=== PATIENT | female | born 1995 | race Caucasian/White ===

== ENCOUNTER 2022-07-24 16:24 | Outpatient (CLI) | payer OTHER, SELFPAY ==
[2022-07-24 18:14] LABS: hCG Titer Quant., Serum 1119 mIU/mL (1-3)
== END 2022-07-24 23:59 | disposition home or self-care (01) ==
LOC: LAB 16:30
PROVIDERS: PCP Family Medicine; Visit Provider Advanced Practice Midwife
DX: O20.0 Threatened abortion (principal)
CPT/HCPCS: 36415; 84702

== ENCOUNTER 2022-07-26 10:55 | Outpatient (CLI) | payer OTHER, SELFPAY ==
[2022-07-26 12:01] LABS: hCG Titer Quant., Serum 1930 mIU/mL (1-3)
== END 2022-07-26 23:59 | disposition home or self-care (01) ==
LOC: LAB 10:55
PROVIDERS: PCP Family Medicine; Visit Provider Advanced Practice Midwife
DX: O20.0 Threatened abortion (principal)
CPT/HCPCS: 36415; 84702

== ENCOUNTER → 2022-07-28 | Outpatient (CLI) | payer OTHER, SELFPAY ==
[2022-07-28 10:44] LABS: hCG Titer Quant., Serum 2027 mIU/mL (1-3)
== END | disposition home or self-care (01) ==
LOC: LAB 09:49
PROVIDERS: PCP Family Medicine; Referring Provider Obstetrics & Gynecology; Visit Provider Obstetrics & Gynecology
DX: O00.102 Left tubal pregnancy without intrauterine pregnancy (principal); O00.90 Unspecified ectopic pregnancy without intrauterine pregnancy
CPT/HCPCS: 36415; 84702

== ENCOUNTER 2022-08-05 18:24 | Day surgery (SDC) | payer OTHER, SELFPAY ==
[2022-08-05] VITALS (9 sets, daily range): BP systolic 106–123; BP diastolic 62–78; PULSE 72–96; RESP 14–18; TEMP 36.8–37.2; O2SAT 99–100; BMI 17.3
--- NOTE | 2022-08-05 18:48 | EDS_ITS ---
HPI <NICHOL Maddox - Last Filed: 08/05/22 21:55> HPI - Female History of Present Illness Chief Complaint: Narrative Narrative: Patient presents today for evaluation for known ectopic . Patient states on July 24 she began to have lower left-sided abdominal pain. She was evaluated in the hospital and it was determined that she had an ectopic . Last Thursday she was given a single dose of methotrexate. She states her hCG levels were repeated on Thursday and although they were still high, they were not as high as they were during her initial presentation. She states she started having a moderate amount of vaginal bleeding on Thursday that has since resolved. PFSH <NICHOL Maddox - Last Filed: 08/05/22 21:55> PFS Medical History ADHD Anxiety Depression IBS (irritable bowel syndrome) Insomnia Laryngospasms Home Medications buspirone 15 mg tablet 15 mg PO BID 08/05/22 [History Last Taken Unknown] lisdexamfetamine 50 mg capsule 50 mg PO DAILY 08/05/22 [History Last Taken Unknown] pantoprazole 40 mg tablet,delayed release 40 mg PO DAILY 08/05/22 [History Last Taken Unknown] sertraline 100 mg tablet 100 mg PO DAILY 08/05/22 [History Last Taken Unknown] trazodone 100 mg tablet 100 mg PO QHS 08/05/22 [History Last Taken Unknown] Allergy/AdvReac Type Severity Reaction Status Date / Time cefuroxime Allergy Hives Verified 08/05/22 18:54 Surgical History History of tonsillectomy Social History Smoking Status: Never smoker ROS <NICHOL Maddox - Last Filed: 08/05/22 21:55> ROS ED Constitutional Constitutional ED: Denies chills, fever(s) or sweats Eyes Eyes: Denies blurry vision or change in vision ENT ENT ED: Denies rhinorrhea or sore throat Cardiovascular Cardiovascular: Denies chest pain, palpitations or racing heartbeat Respiratory/Chest Respiratory/Chest: Denies cough, dyspnea or dyspnea on exertion Gastrointestinal Gastrointestinal: Denies abdominal pain, diarrhea, nausea or vomiting Genitourinary Genitourinary ED: Denies dysuria, hematuria or urinary frequency Musculoskeletal Musculoskeletal: Denies myalgias or neck pain Integumentary Denies abscess, Abrasions or rash Neurologic Neurologic: Denies headache(s), paresthesias or weakness Psychiatric Psychiatric: Denies anxiety or depression EXAM <NICHOL Maddox - Last Filed: 08/05/22 21:55> Physical Exam Const Vital Signs: 08/05/22 18:25 08/05/22 20:34 08/05/22 21:18 Temperature 98.9 F 99.0 F Temperature Source Temporal Oral Pulse Rate 91 96 Respiratory Rate 14 16 16 Blood Pressure 106/73 114/71 Blood Pressure Mean 84 85 Blood Pressure Source Monitor Blood Pressure Location Left Arm Pulse Ox 99 100 Oxygen Delivery Method Room Air Room Air Positive well nourished and well developed General Appearance ED: well developed and NAD HEENT Reports moist mucous membranes Negative for trauma or tenderness Eyes PERRL and EOMs intact bilaterally Neck no lymphadenopathy and supple Chest Wall inspection of chest normal Resp normal respiratory effort and clear to auscultation bilaterally Cardio regular rate, regular rhythm and no murmurs GI normal to inspection, nondistended, normoactive bowel sounds, soft to palpation and no masses Extremity normal to inspection and full ROM Neuro oriented x3, CN's II-XII intact bilaterally and no sensory deficits noted Sensorium / Orientation: alert Motor Exam: strength 5/5 throughout Psych mental status grossly normal Skin no rashes or lesions noted and no wounds <Dr. Chris Conde DO - Last Filed: 08/05/22 21:15> Physical Exam Const Vital Signs: 08/05/22 18:25 08/05/22 20:34 08/05/22 21:18 Temperature 98.9 F 99.0 F Temperature Source Temporal Oral Pulse Rate 91 96 Respiratory Rate 14 16 16 Blood Pressure 106/73 114/71 Blood Pressure Mean 84 85 Blood Pressure Source Monitor Blood Pressure Location Left Arm Pulse Ox 99 100 Oxygen Delivery Method Room Air Room Air MDM <NICHOL Maddox - Last Filed: 08/05/22 21:55> MDM MDM Narrative Medical decision making narrative: I have personally performed a face to face assessment of the patient and have reviewed the HUSSAIN Note. I performed a substantive portion of the visit including all aspects of the following. My [place] findings include: History is [patient presents to the emergency department with complaint of abdominal pain. Patient states that she was diagnosed with an ectopic and started methotrexate 1 week ago. The ectopic is in her left ovary. Patient started having some vaginal bleeding 4 days ago. Today she started having severe left sided abdominal pain that can radiate to the right side of the abdomen. Patient went to [facility] where case was discussed with patient's BAFFLE MOUNTER and they referred her here to [place] where her BAFFLE MOUNTER is available to see her. I spoke with Dr. Joshi who wanted repeat lab work and a repeat pelvic ultrasound to evaluate further. Patient currently tells me she has no significant pain.] Exam is [HEENT-PERRLA, EOMI. Cranial nerves II through XII grossly intact. TMs clear. Mucous membranes moist. No adenopathy. Cardiovascular-regular rate and rhythm without murmur or ectopy Lungs-clear to auscultation, chest wall stable without crepitus or subcu emphysema Abdomen-normoactive bowel sounds, soft. Patient has mild tenderness over left lower quadrant with some guarding. There is no rebound, rigidity, or peritoneal signs. Extremities-intact ?4, normal range of motion, normal pulses, atraumatic] Medical Decison Making [patient's H&H was stable. Pelvic ultrasound does show moderate amount of complex fluid in the cul-de-sac concerning for hemoperitoneum. Case will be discussed with Dr. Joshi who present to the emergency department to evaluate the patient for surgical intervention for this ectopic . Final disposition will be per Dr. Joshi.] Other additions or changes: [None] Patient has been discussed with Dr. Joshi and she will be taken to the OR for surgical intervention. Patient is comfortable with plan. Lab Data Attestation: I reviewed the patient's lab results. Lab results narrative: WBC 14.1, RBC 3.84, HCT 34.6, potassium 3.2, HCG 3016 Labs: Laboratory Results - last 24 hr 08/05/22 08/05/22 08/05/22 18:52 19:00 19:04 WBC 14.1 H RBC 3.84 L Hgb 12.1 Hct 34.6 L MCV 90.1 MCH 31.5 MCHC 35.0 RDW Std Deviation 37.4 RDW Coeff of Ricardo 11.7 Plt Count 270 MPV 9.4 Immature Gran % (Auto) 0.400 Neut % (Auto) 77.1 H Lymph % (Auto) 17.8 L [place] % (Auto) 3.8 Eos % (Auto) 0.6 Baso % (Auto) 0.3 Absolute Neuts (auto) 10.9 H Absolute Lymphs (auto) 2.52 Nucleated RBC % 0 Sodium 139 Potassium 3.2 L Chloride 107 Carbon Dioxide 24.0 Anion Gap 8 BUN 8 Creatinine 0.63 Estim Creat Clear Calc 100.78 Est GFR (MDRD) Af Amer 147 Est GFR (MDRD) Non-Af 121 BUN/Creatinine Ratio 12.7 Glucose 89 Calcium 9.3 HCG, Quant 3016 H Blood Type 08/05/22 19:04 WBC RBC Hgb Hct MCV MCH MCHC RDW Std Deviation RDW Coeff of Ricardo Plt Count MPV Immature Gran % (Auto) Neut % (Auto) Lymph % (Auto) [place] % (Auto) Eos % (Auto) Baso % (Auto) Absolute Neuts (auto) Absolute Lymphs (auto) Nucleated RBC % Sodium Potassium Chloride Carbon Dioxide Anion Gap BUN Creatinine Estim Creat Clear Calc Est GFR (MDRD) Af Amer Est GFR (MDRD) Non-Af BUN/Creatinine Ratio Glucose Calcium HCG, Quant Blood Type O POSITIVE Radiography Diagnostic Testing: Clinical Impression(s) from Imaging Studies Obstetrics Ultrasound 08/05/22 18:52 IMPRESSION: Left ectopic . Moderate hemoperitoneum. Electronically Signed: Jef Adams MD at 20:57 EST Reading Location ID and State: [facility] / [place] , Service support , ADDENDUM: 08/05/222110 IMPRESSION: Left ectopic . Moderate hemoperitoneum. N.B. : The above Results were Read Back by Jef Adams MD to Dr. Amaya MD, and understanding confirmed on 08/05/2022 21:03:15 (ET). Electronically Signed: Jef Adams MD at 20:57 EST , I reviewed ultrasound and agree with radiologist impressions. This ultrasound has also been reviewed by attending ED physician. <Dr. Chris Conde, DO - Last Filed: 08/05/22 21:15> [facility] Narrative Medical decision making narrative: I have personally performed a face to face assessment of the patient and have reviewed the HUSSAIN Note. I performed a substantive portion of the visit including all aspects of the following. My [place] findings include: History is [patient presents to the emergency department with complaint of abdominal pain. Patient states that she was diagnosed with an ectopic and started methotrexate 1 week ago. The ectopic is in her left ovary. Patient started having some vaginal bleeding 4 days ago. Today she started having severe left sided abdominal pain that can radiate to the right side of the abdomen. Patient went to [facility] where case was discussed with patient's BAFFLE MOUNTER and they referred her here to [place] where her BAFFLE MOUNTER is available to see her. I spoke with Dr. Joshi who wanted repeat lab work and a repeat pelvic ultrasound to evaluate further. Patient currently tells me she has no significant pain.] Exam is [HEENT-PERRLA, EOMI. Cranial nerves II through XII grossly intact. TMs clear. Mucous membranes moist. No adenopathy. Cardiovascular-regular rate and rhythm without murmur or ectopy Lungs-clear to auscultation, chest wall stable without crepitus or subcu emphysema Abdomen-normoactive bowel sounds, soft. Patient has mild tenderness over left lower quadrant with some guarding. There is no rebound, rigidity, or peritoneal signs. Extremities-intact ?4, normal range of motion, normal pulses, atraumatic] Medical Decison Making [patient's H&H was stable. Pelvic ultrasound does show moderate amount of complex fluid in the cul-de-sac concerning for hemoperitoneum. Case will be discussed with Dr. Joshi who present to the emergency department to evaluate the patient for surgical intervention for this ectopic . Final disposition will be per Dr. Joshi.] Other additions or changes: [None] Lab Data Labs: Laboratory Results - last 24 hr 08/05/22 08/05/22 08/05/22 18:52 19:00 19:04 WBC 14.1 H RBC 3.84 L Hgb 12.1 Hct 34.6 L MCV 90.1 MCH 31.5 MCHC 35.0 RDW Std Deviation 37.4 RDW Coeff of Ricardo 11.7 Plt Count 270 MPV 9.4 Immature Gran % (Auto) 0.400 Neut % (Auto) 77.1 H Lymph % (Auto) 17.8 L [place] % (Auto) 3.8 Eos % (Auto) 0.6 Baso % (Auto) 0.3 Absolute Neuts (auto) 10.9 H Absolute Lymphs (auto) 2.52 Nucleated RBC % 0 Sodium 139 Potassium 3.2 L Chloride 107 Carbon Dioxide 24.0 Anion Gap 8 BUN 8 Creatinine 0.63 Estim Creat Clear Calc 100.78 Est GFR (MDRD) Af Amer 147 Est GFR (MDRD) Non-Af 121 BUN/Creatinine Ratio 12.7 Glucose 89 Calcium 9.3 HCG, Quant 3016 H Blood Type 08/05/22 19:04 WBC RBC Hgb Hct MCV MCH MCHC RDW Std Deviation RDW Coeff of Ricardo Plt Count MPV Immature Gran % (Auto) Neut % (Auto) Lymph % (Auto) [place] % (Auto) Eos % (Auto) Baso % (Auto) Absolute Neuts (auto) Absolute Lymphs (auto) Nucleated RBC % Sodium Potassium Chloride Carbon Dioxide Anion Gap BUN Creatinine Estim Creat Clear Calc Est GFR (MDRD) Af Amer Est GFR (MDRD) Non-Af BUN/Creatinine Ratio Glucose Calcium HCG, Quant Blood Type O POSITIVE Radiography Diagnostic Testing: Clinical Impression(s) from Imaging Studies Obstetrics Ultrasound 08/05/22 18:52 IMPRESSION: Left ectopic . Moderate hemoperitoneum. Electronically Signed: Jef Adams MD at 20:57 EST Reading Location ID and State: [facility] / [place] , Service support , ADDENDUM: 08/05/222110 IMPRESSION: Left ectopic . Moderate hemoperitoneum. N.B. : The above Results were Read Back by Jef Adams MD to Dr. Amaya MD, and understanding confirmed on 08/05/2022 21:03:15 (ET). Electronically Signed: Jef Adams MD at 20:57 EST Reading Location ID and State: [facility] / [place] , Service support , Discharge Plan Dx/Rx/DC Orders Clinical Impression: Hemoperitoneum due to rupture of left tubal ectopic , Abdominal pain Disposition Disposition: Acute Care Hospital [facility] Discharge Date/Time: 08/05/22 21:50
--- NOTE | 2022-08-05 18:52 | US_ITS ---
We are attempting to reach an attending provider to discuss findings. An addendum with communication details will be sent when the communication is complete. STUDY: FIRST TRIMESTER OBSTETRICAL ULTRASOUND REASON FOR EXAM: Female, 26 years old known ectopic-LTO LMP: May 31, 2022 TECHNIQUE: Transvaginal TECHNICAL QUALITY: Adequate. PRIOR ULTRASOUND: None. FINDINGS: No intrauterine . Endometrial 6 mm with endometrial atrial fluid noted.. EGA by LMP is 9 weeks 3 days with an KOKO of March 07, 2003. The uterus measures 8 x 5.1 x 3.6 cm. There is no demonstrated uterine fibroid. The cervix is closed. The right ovary measures 1.2 x 1.3 x 0.9 cm. There is no right ovarian cyst. There is no visualized right adnexal mass or complex lesion. Left adnexal mass measures 2.6 x 2.5 cm with a ring of fire. There is moderate complex fluid with debris in the cul-de-sac. US/Transvaginal w/Preg US IMPRESSION: Left ectopic . Moderate hemoperitoneum. Electronically Signed: Jef Adams MD at 20:57 EST ,
[2022-08-05 19:20] LABS: Absolute Lymphocyte Count 2.52 X10^3/uL (0.83-4.51); Absolute Neutrophil Count 10.9 X10^3/uL (2.0-7.7); Basophil# 0.04 X10^3/uL; Basophil% 0.3 % (0-1); Eosinophil# 0.08 X10^3/uL; Eosinophils% 0.6 % (0-5); Hematocrit 34.6 % (37-47); Hemoglobin 12.1 g/dL (12.0-15.0); Lymphocyte # 2.52 X10^3/ul (0.83-4.51); Lymphocyte % 17.8 % (19-41); Mean Corpuscular Hgb 31.5 pg (27.0-32.0); Mean Corpuscular Volume 90.1 fL (81-99); Mean Platelet Vol. 9.4 fl (6.2-12.0); Monocyte# 0.54 X10^3/uL; Monocyte% 3.8 % (0-10); NRBC Flagged by Analyzer 0 % (0-5); Neutrophil # 10.89 X10^3/uL (2.7-7.7); Neutrophil % 77.1 % (47-70); Platelet Count 270 K/mm3 (150-450); RBC Distribution Width CV 11.7 % (11.6-14.6); RBC Distribution Width SD 37.4 fl (35.1-43.9); Red Blood Count 3.84 M/mm3 (4.2-5.4); White Blood Count 14.1 K/mm3 (4.4-11.0)
[2022-08-05 19:58] LABS: Anion Gap 8 (5-15); BUN 8 mg/dL (7-18); BUN/Creat Ratio 12.7 RATIO (10-20); Calcium,Total 9.3 mg/dL (8.5-10.1); Chloride 107 mmol/L (98-107); Creatinine, Serum 0.63 mg/dL (0.55-1.02); EST Glomerular Filtration Rate 121 mL/min (>60); Est Glom Filt Rate - Afr Amer 147 mL/min (>60); Estimated Creatinine Clearance 100.78 ml/min; Glucose 89 mg/dL (74-106); Potassium 3.2 mmol/L (3.5-5.1); Sodium Level 139 mmol/L (136-145)
[2022-08-05 19:59] LABS: hCG Titer Quant., Serum 3016 mIU/mL (1-3)
--- NOTE | 2022-08-05 21:49 | HP.PCM_ITS ---
History and Physical Date of Admission: 08/05/22 26-year-old [employer] female at approximately 9 weeks from last menstrual period who was diagnosed with an ectopic last week. She received methotrexate 1 week ago. Today she had sudden acute onset of pain in her left lower quadrant at approximately 1 PM. She went to [facility] emergency room where she was evaluated and determined to be stable. They did nuvia the case with me and I agreed to accept her to [facility] emergency room. I contacted the emergency room to arrange for care. When she arrived here she had a decreased pain level. She has had some light vaginal bleeding for several days. Past medical history significant for ADHD and anxiety. Irritable bowel syndrome Past surgical history tonsillectomy and colonoscopy and EGD Social history: Patient denies any tobacco or drug use. Drinks alcohol socially. Allergies Ceftin causes hives Medications include clued buspirone, lisdexamfetamine, pantoprazole, and trazodone and sertraline. Physical exam: Awake, alert, no acute distress Skin: Warm dry and Heart S1-S2 regular rate and rhythm Lungs clear to auscultation bilateral Abdomen: Somewhat rigid, flat, nondistended, moderate tenderness with some rebound in the left lower quadrant. Mild referred pain on left side from right palpation Pelvic ultrasound and labs were reviewed. Assessment & Plan Assessment/Plan (1) Hemoperitoneum due to rupture of left tubal ectopic : PLAN: Risk benefits and alternatives to laparoscopic salpingectomy versus salpingostomy were discussed with patient her questions were answered to her satisfaction she desires to proceed. We will attempt tubal preservation but understands risk of salpingectomy. Accept blood transfusions. Questions answered to her satisfaction she desires to proceed. present for discussion and agrees w/ plan and witnessed consent. (2) Abdominal pain:
--- NOTE | 2022-08-05 22:02 | DCINST_ITS ---
Discharge Instructions Diet Discharge Diet: No restrictions Activity Discharge Activity: May Drive (08/07 as tolerated) and May Shower (08/06) Return to work on:: 08/11/22 May resume sexual activity in: 1-2 weeks Lifting Restrictions: 15 lbs x 2 weeks Dressing / Incision Call your doctor if your incision/area has: Continuous Slow Oozing and Sudden Increased Bleeding Call your doctor if you observe: Fever of 101 or Higher and Using more than 1 pad per hour Cleanse incision/area with: Soap & Water (Your incisions have skin glue, it can get wet. LEave the glue on for 10 days or until it falls off) Follow Up Care Please Follow Up With: Anjali Joshi MD When: Dr. Joshi's office in 1-2 weeks or as needed. [phone]- call to make an appointment Test Results: Test results from this visit will be discussed in further detail at your follow- up appointment, if applicable. Discharge Plan Admission Admit Date/Time: 08/05/22 21:23 Primary Reason for Your Visit: Laparoscopy for ruptured left ectopic Attending Provider: Anjali Joshi Primary Care Provider: Quique Acosta Discharge Orders/Prescriptions Prescriptions: No Action sertraline 100 mg Tablet 100 mg PO DAILY trazodone 100 mg Tablet 100 mg PO QHS pantoprazole 40 mg Tablet,Delayed Release (Dr/Ec) 40 mg PO DAILY buspirone 15 mg Tablet 15 mg PO BID lisdexamfetamine 50 mg Capsule 50 mg PO DAILY Referrals / Follow Up: Quique Acosta MD [Primary Care Provider] - Disposition Disposition (needs filled in before D/C Order can be placed): Home, Self Care
[2022-08-05] MEDS: Bupivacaine Mpf 0.5% 30 ML VIAL (22:12)
--- NOTE | 2022-08-05 22:15 | FAL_PTH ---
PATIENT: JAGDISH MCCLELLAN [place] [facility] [id number] AGE/SX: 26/F ROOM: RE08/05/[address]: Dr. Anjali Joshi MD : 1995 BED: DIS: 08/06/2022 SPEC #: [id number] RECD: 08/06/22 09:05 STATUS: EBONI AMIRA #: [id number] CARLOS: 08/05/22 22:[address]: Anjali Joshi DEPT: SURGICAL PATHOLOGY RECD BY: Eulalia Fuller ENTERED: 08/06/22 10:26 SP TYPE: ECTOPIC OTHR DR: Quique Acosta MD Tissues: ECTOPIC PREG Procedures: Surgery Specimen Level IV HEADER OPERATION: Laparoscopic removal ectopic PRE-OP DIAGNOSIS: Hemoperitoneum due to rupture of left tubal ectopic , abdominal pain TISSUE SUBMITTED: Ectopic MICROSCOPIC DIAGNOSIS Ectopic : [place], immature chorionic villi and blood clots, consistent with clinical diagnosis of ectopic . GUI:jose 08/07/2022 MICROSCOPIC DESCRIPTION Slides are reviewed. GROSS DESCRIPTION Received in fixative is one container labeled with the patient's name and designated ectopic . The specimen consists of multiple irregular fragments of dark red-chi soft tissue that in aggregate measure 5 x 3 x 0.2 cm. The specimen is totally submitted in two cassettes. / AM:jose 08/06/2022 TC:5 CPT: 40146
--- NOTE | 2022-08-05 22:41 | OP.PCM_ITS ---
Problems Associated Problem List Diagnoses (1) Hemoperitoneum due to rupture of left tubal ectopic : (2) Abdominal pain: Report of Operation Date of Procedure: 08/05/22 Pre-Operative Diagnosis: Abdominal pain, ruptured left ectopic Post-Operative Diagnosis: Same Surgery/Procedure Performed:: Laparoscopic left salpingostomy and evacuation of hemoperitoneum Description of Surgical Findings:: Normal bilateral ovaries, normal uterus and peritoneal cavity. Normal right fallopian tube. Left fallopian tube enlarged and edematous with some clot extruding from the fimbriated end. Surgeon: Anjali Joshi insurance claim auditor: Leigh Gamez Type of Anesthesia: General Anesthesiologist: Kadie Low Special Medications: none Specimen's removed: left ectopic Drains: none Estimated Blood Loss (mL): 150 Fluids Replaced: 1000 Description of Procedure: The patient was taken to the operating room where she was prepped and draped in the dorsolithotomy position. A weighted speculum was placed in the vagina and the anterior lip of the cervix was grasped with a tenaculum. The [employer]iner CRM uterine manipulator was placed and the remainder of the instruments were removed from the vagina. Attention was turned to the abdomen. All port sites were infiltrated with 0.5% Marcaine before skin incisions were made. A 5 mm intraumbilical incision was made. The anterior abdominal wall was tented up with 2 towel clamps while a 5 mm blade less trocar and sleeve were directly inserted. Intraperitoneal placement was confirmed with the laparoscope. The pneumoperitoneum was created and the underlying abdominal contents were intact. The patient was placed in Trendelenburg. Right and left lower quadrant ports were placed under direct visualization lateral to the inferior epigastric vessels. The bowel was swept away and the above findings were noted. An incision was made with the monopolar scissors along the antimesenteric portion of the edematous left tube. Contents were extruded and removed with graspers and sent to pathology. Suction tool room supervisor was then used to irrigate out any remaining tissue. The edges were Bovie cauterized with the scissors. Any blood was suction irrigated out of the pelvis some fibrillar was placed in the open incision and some Gin was placed over the sites. The trochars were removed under direct visualization and even under low pressure the operative site was hemostatic. No active bleeding from the port sites was noted. The pneumoperitoneum was released. The skin incisions were closed with Monocryl suture in a subcuticular fashion and skin glue by the WINDOWS INFRASTRUCTURE ENGINEER with me present in the operating suite. The vaginal instruments were removed and the vaginal sweep was completed by me. The procedure was performed by me with assistance other than as dictated above. All sponge and needle counts were correct and the patient was taken to the recovery room in stable condition. Grafts/Implants Used: none Procedure Start Time: 22:12 Procedure Stop Time: 22:42 Complications none Admit VTE Documentation VTE Present on Admission: No VTE Mechan Device Prophylaxis: SCD's VTE Pharm Prophylaxis ordered?: No
[2022-08-06] VITALS: BP 114/71
[2022-08-06] MEDS: oxyCODONE 5 MG Tablet PO (00:03)
== END 2022-08-06 00:08 | disposition home or self-care (01) ==
LOC: ED 21:15 → PCU 22:06 → SDC 08-06 11:50 → PCU 08-06 11:50
PROVIDERS: Physician Assistant; Emergency Provider Emergency Medicine; PCP Family Medicine; Visit Provider Obstetrics & Gynecology
PROC: 10T24ZZ Resection of Products of Conception, Ectopic, Percutaneous Endoscopic Approach (ICD-10-PCS; CPT 59150; principal; 2022-08-05 22:00)
DX: O00.102 Left tubal pregnancy without intrauterine pregnancy (principal); O08.89 Other complications following an ectopic and molar pregnancy; K66.1 Hemoperitoneum; G47.00 Insomnia, unspecified
CPT/HCPCS: 59150; 00840; 76817; 80048; 84702; 85025; 86900; 86901; 88305; 99283; J7120; J2405

== ENCOUNTER 2023-07-08 03:52 | Inpatient (IN) | payer OTHER, SELFPAY ==
[2023-07-08] VITALS (46 sets, daily range): BP systolic 99–144; BP diastolic 52–81; PULSE 67–102; RESP 16; TEMP 36.3–37.4; O2SAT 94–100; BMI 23.6
[2023-07-08] MEDS: LACTATED RINGERS 500 ML 999 ML IV ×2 (03:30→04:13)
[2023-07-08 03:50] LABS: ROM Internal Control Test YES-OK TO RESULT pt. (Internal QC)
[2023-07-08 03:52] LABS: ROM Patient Test POSITIVE (Negative); Record Kit Lot#, ROM+ K1409
[2023-07-08 04:06] LABS: Absolute Lymphocyte Count 2.11 X10^3/uL (0.83-4.51); Absolute Neutrophil Count 8.8 X10^3/uL (2.0-7.7); Basophil# 0.03 X10^3/uL; Basophil% 0.3 % (0-1); Eosinophil# 0.09 X10^3/uL; Eosinophils% 0.8 % (0-5); Hematocrit 35.4 % (37-47); Hemoglobin 11.4 g/dL (12.0-15.0); Lymphocyte # 2.11 X10^3/ul (0.83-4.51); Lymphocyte % 17.8 % (19-41); Mean Corp Hgb Conc 32.2 g/dL (32-36); Mean Corpuscular Volume 93.2 fL (81-99); Mean Platelet Vol. 10.2 fl (6.2-12.0); Monocyte# 0.73 X10^3/uL; Monocyte% 6.2 % (0-10); NRBC Flagged by Analyzer 0 % (0-5); Neutrophil # 8.81 X10^3/uL (2.7-7.7); Neutrophil % 74.4 % (47-70); Platelet Count 327 K/mm3 (150-450); RBC Distribution Width CV 11.7 % (11.6-14.6); RBC Distribution Width SD 39.3 fl (35.1-43.9); White Blood Count 11.8 K/mm3 (4.4-11.0)
[2023-07-08] MEDS: Penicillin G Pot 5,000,000 UNITS in 0.9% Normal Saline (100mL MB+) 100 ML 150 UNITS IV (04:13)
[2023-07-08] MEDS: Betamethasone/Betamethasone 30 MG/5 ML Vial 12 MG IM (04:22)
[2023-07-08] MEDS: fentaNYL-bupivacaine (epidural) 100 ML BAG EPIDURAL (04:40)
[2023-07-08 04:45] LABS: Group B Strep DNA By PCR Negative (Negative); Internal Control PASS; Probe Check PASS; Specimen Processing Control PASS
[2023-07-08] MEDS: Lactated Ringers 1,000 ML 200 ML IV (04:45)
[2023-07-08 05:07] LABS: Syphilis Antibodies Non-reactive
[2023-07-08] MEDS: Oxytocin 15 Units/NS 250ml 15 UNITS/250 ML IV.SOLN 83 UNITS IV (07:11)
[2023-07-08] MEDS: Oxytocin 10 UNITS/ML Vial IM ×2 (07:14→07:16)
--- NOTE | 2023-07-08 07:37 | PCM.HP.OB ---
HPI - General General Date of Admission: 07/08/23 Date of Service: 07/08/23 HPI Narrative JAGDISH MCCLELLAN, is a 27 F who presents with LOF. Maternal Data Information Final KOKO: 08/17/23 Gestational age: 34&2 PFSH PFSH Medical History ADHD Anxiety Depression IBS (irritable bowel syndrome) Insomnia Laryngospasms Home Medications buspirone 15 mg tablet 15 mg PO BID anxiety 08/05/22 [History Last Taken 07/07/23] lisdexamfetamine 50 mg capsule 50 mg PO DAILY ADHD 08/05/22 [History Last Taken 07/07/23] pantoprazole 40 mg tablet,delayed release 40 mg PO DAILY reflux 08/05/22 [History Last Taken 07/07/23] sertraline 100 mg tablet 150 mg PO DAILY anxiety 08/05/22 [History Last Taken 07/07/23] trazodone 100 mg tablet 100 mg PO QHS insomia 08/05/22 [History Last Taken 07/07/23] doxylamine-pyridoxine (vit B6) PO nausea 07/08/23 [History Last Taken 07/07/23] magnesium PO headache 07/08/23 [History Last Taken Unknown] vits,calcium 91-iron 28 mg-folic 975 mcg-dha 200 mg oral pack ( + DHA) pkg PO 07/08/23 [History Last Taken 07/07/23] Allergy/AdvReac Type Severity Reaction Status Date / Time cefuroxime Allergy Hives Verified 07/08/23 02:59 Surgical History History of tonsillectomy Social History Smoking Status: Former smoker History Elective abortions Hx Para 0 Spontaneous abortions Hx # Term Pregnancies Ectopic pregnancies Hx # Pregnancies Multiple births # of living children Vital Signs Vital Signs Vital Signs: 07/08/23 03:10 07/08/23 03:10 07/08/23 03:08 Temperature 97.4 F L Pulse Rate 81 Blood Pressure 123/81 H BP Systolic 123 BP Diastolic 81 Pulse Ox 07/08/23 04:31 07/08/23 04:31 07/08/23 04:37 Temperature Pulse Rate 91 Blood Pressure 126/79 H BP Systolic 126 BP Diastolic 79 Pulse Ox 100 07/08/23 04:37 07/08/23 04:36 07/08/23 04:42 Temperature Pulse Rate 86 Blood Pressure 120/70 BP Systolic 120 BP Diastolic 70 Pulse Ox 100 07/08/23 04:42 07/08/23 04:42 07/08/23 04:42 Temperature Pulse Rate 87 78 Blood Pressure BP Systolic BP Diastolic Pulse Ox 100 07/08/23 04:46 07/08/23 04:46 07/08/23 04:47 Temperature Pulse Rate 96 71 Blood Pressure 107/59 L BP Systolic 107 BP Diastolic 59 Pulse Ox 07/08/23 04:47 07/08/23 04:52 07/08/23 04:52 Temperature Pulse Rate 79 Blood Pressure 144/69 H BP Systolic 144 BP Diastolic 69 Pulse Ox 100 07/08/23 04:52 07/08/23 04:57 07/08/23 04:57 Temperature Pulse Rate 74 Blood Pressure 123/70 H BP Systolic 123 BP Diastolic 70 Pulse Ox 100 07/08/23 04:57 07/08/23 05:01 07/08/23 05:06 Temperature Pulse Rate Blood Pressure 132/72 H 123/67 H BP Systolic 132 123 BP Diastolic 72 67 Pulse Ox 100 07/08/23 05:06 07/08/23 05:11 07/08/23 05:11 Temperature Pulse Rate 67 74 Blood Pressure 130/69 H BP Systolic 130 BP Diastolic 69 Pulse Ox 07/08/23 07:28 07/08/23 07:28 Temperature Pulse Rate 88 Blood Pressure 120/71 BP Systolic 120 BP Diastolic 71 Pulse Ox Weight Weight: 141 lb 9.6 oz Body Mass Index (BMI) 23.6 Labs Labs Labs: Blood Type O POSITIVE Antibody Screen NEGATIVE Hct 35.4 % (37-47) L Hgb 11.4 g/dL (12.0-15.0) L Obstetrics Ultrasound Syphilis Total Ab Non-reactive Group B Strep DNA Negative (Negative) see [facility] H&P Assessment & Plan (1) labor: QUALIFIERS: labor trimester: third trimester labor delivery status: with delivery in third trimester Fetus number: single or unspecified fetus Qualified Code(s): O60.14X0 - labor third trimester with delivery third trimester, not applicable or unspecified COMMENT: @ 34&2 PLAN: Plan Patient admitted to L&D for PTL She received IV pcn & BMZ Anxiety, depression & OCD - continue meds
--- NOTE | 2023-07-08 07:41 | EX.PCM.OBRPT ---
Maternal Data Information Final KOKO: 08/17/23 Gestational age: 34&2 Vaginal Delivery Maternal Presentation Maternal Presentation: Spontaneous Rupture of Membranes Operative Information Date of Procedure: 07/08/23 Pre-Operative Diagnosis: labor Post-Operative Diagnosis: Same Surgery / Procedure Performed: Spontaneous Vaginal Delivery Type of Anesthesia: Epidural Estimated Blood Loss: 350ml Findings Description of Procedure: Patient prepped & draped when C/C/+2. She pushed well to deliver the head. head gently guided to allow delivery of anterior and posterior shoulders. No excess traction placed on head. Body delivered and 3VC clamped & cut in slightly delayed fashion. Placenta delivered with gentle traction and good uterine tone obtained. Presentation: DEXTER Amniotic Membrane Rupture Type: Artificial Amniotic Fluid Description: Clear Placental Delivery Description: Expressed Placenta Disposition: [facility] Specimen(s) Removed: Placenta Cord Vessel Description: 3 Vessels Cord Entanglement: None A Gender: Female (Estelle) (1 minute): 8 (5 minute): 9 Delayed Cord Clamping: Yes Post Vaginal Delivery Medications Given After Delivery: IV Pitocin and IM Pitocin Episiotomy Description: None Laceration: 2nd degree (repaired with 3-0 vicryl) Complication Complications: None
[2023-07-08] MEDS: Ibuprofen 600 MG Tablet PO ×2 (08:56→19:00)
--- NOTE | 2023-07-08 10:25 | NURSING ---
IBCLC at bedside to give formula booklet, and explain how to mix powder formula, and that ready to feed formula is the best choice for her premature . Mom states understanding.
[2023-07-08] MEDS: busPIRone 15 MG TABLET PO (19:01)
[2023-07-08] MEDS: Acetaminophen 500 MG Tablet 1000 MG PO (19:01)
[2023-07-08] MEDS: traZODone 100 MG Tablet PO (19:50)
[2023-07-09] MEDS: Acetaminophen 500 MG Tablet 1000 MG PO ×3 (04:49→20:14)
[2023-07-09] MEDS: Ibuprofen 600 MG Tablet PO ×3 (04:49→20:13)
[2023-07-09 04:51] VITALS: BP 108/58; PULSE 79; RESP 16; TEMP 36.6
[2023-07-09] MEDS: Pantoprazole Sodium 40 MG Tablet PO (07:04)
[2023-07-09] MEDS: Sertraline 100 MG Tablet 150 MG PO (07:04)
[2023-07-09] MEDS: Prenatal Vits Tablet 1 TABLET PO (07:04)
[2023-07-09] MEDS: busPIRone 15 MG TABLET PO ×2 (07:04→19:26)
[2023-07-09] MEDS: LISDEXAMFETAMINE DIMESYLATE 50 MG CAPSULE PO (07:04)
--- NOTE | 2023-07-09 07:09 | PCM.PN.OB ---
Subjective Subjective Patient seen at bedside. Ambulating and voiding without difficulty. Denies headache, dizziness, CP, or SOB. Lochia decreasing. Baby in SCN. Pumping and feeding. Desires discharge home tomorrow. Objective Data Objective Data Vital Signs: Vital Signs Temp Pulse Resp BP Pulse Ox O2 Del Method 97.9 F 79 16 108/58 L 100 Room Air 07/09/23 04:51 07/09/23 04:51 07/09/23 04:51 07/09/23 04:51 07/08/23 09:38 07/08/23 19:50 Oxygen Delivery Method Room Air Weight: 141 lb 9.6 oz Body Mass Index (BMI) 23.6 Intake & Output: Intake and Output for Last 24 Hours 07/07/23 07/08/23 07/09/23 23:59 23:59 23:59 Intake Total 2443.33 / 2443.33 Output Total 1450 / 1450 Balance 993.33 / 993.33 Lab / Micro Data 07/08/23 03:30 ROS Eyes Eyes: Denies blurry vision, change in vision or spots in vision ENT HEENT: Denies dizziness or headache(s) Cardiovascular Cardiovascular: Denies abdominal pain, chest pain or dyspnea Respiratory/Chest Respiratory/Chest: Denies cough, dyspnea, shortness of breath at rest or shortness of breath with exertion Gastrointestinal Gastrointestinal: Denies abdominal pain, diarrhea or vomiting Genitourinary Genitourinary: Denies change in urinary stream, difficulty urinating or dysuria Musculoskeletal Musculoskeletal: Reports none Integumentary Integumentary: Denies rash Neurologic Neurologic: Denies dizziness, headache(s), memory loss or weakness Physical Exam Const alert and no apparent distress General Appearance: cooperative and comfortable Exam Limitations: no limitations HEENT normocephalic Eyes General Eye: normal appearance of both eyes Neck full ROM General: normal visual inspection Chest Chest: symmetrical chest wall rise Resp normal respiratory effort and normal air movement Effort and Inspection: symmetric chest movement Auscultation: clear to auscultation bilaterally Cardio regular rate and regular rhythm GI normal to inspection, nondistended, normoactive bowel sounds Back/Spine normal ROM Extremity full ROM and no calf tenderness General Extremity: normal exam except as noted Skin no rashes or lesions noted Neuro CN's II-XII intact bilaterally Psych mental status grossly normal Assessment & Plan (1) (spontaneous vaginal delivery): (2) Care and examination of lactating mother: (3) delivery: (4) premature rupture of membranes (PPROM) delivered, current hospitalization: PLAN: Plan PPD 1 Routine care Pumping and feeding baby in SCN Pain controlled Continue previous psychiatric medications - home meds sent to pharmacy Anticipate discharge home tomorrow
[2023-07-09 08:40] VITALS: BP 126/78; PULSE 72; RESP 16; TEMP 36.6; O2SAT 98
[2023-07-09] MEDS: Senna/Docusate Sodium 1 Tablet PO (08:59)
[2023-07-09] MEDS: Influenza Virus Vac Quad 23-24 60 MCG/0.5 ML SYRINGE IM (11:48)
--- NOTE | 2023-07-09 11:56 | CASEMGMT ---
Social Work Assessment Labor and Delivery Unit Patient Address:[address] [place], [place] [id number] Phone number: [phone] Date of Referral:07/08/23 Time of Referral:? 1339 Referred By: Wallace Contreras Date of Intervention: ??07/09/23 Time of Intervention:? 1000 Reason for Referral:? SCN, Hx of anxiety and depression, ADHD, OCD and on meds Sw completed chart review and acknowledges social work consult due to maternal mental health history positive for anxiety, depression, ADHD and OCD. Sw presented to bedside, introduced self to mother of baby (MOB- Janett) and father of baby (FOJesus- Vu) and explained reason for sw involvement. Sw completed psychosocial assessment, assessed for needs/ concerns at this time and provided support, education and literature for parents to review. History obtained from: medical records, MOB and FOB. ?? Household composition: Currently residing in the family home is MOB and TOSIN and baby when she is medically ready for discharge from [facility] ([facility]). Parents report their housing is safe and secure, no issues or concerns. Patient's parent/guardian status:? ?ARCELIA states that she and TOSIN have been together for 6 years, they met on a dating site. No concerns regarding domestic violence or intimate partner violence at this time. Medical History: ARCELIA is 27 year old, female who is 2, para 0- now 1 following delivery of baby. ARCELIA received routine care with [facility] during . ARCELIA delivered baby on 07/08/23 via vaginal delivery at 34 weeks gestation. Baby girl, named Estelle Ferguson, was born weighing 5lb 3oz and her apgars were 8 and 9 at one and five minutes of life, respectfully. Baby eventually required admission to [facility] due to respiratory distress. ARCELIA states that baby will be followed by Dr. Adams for pediatrics. Educational Status:? Both parents graduated from high school and obtained college degrees. Parents deny concerns with reading, learning or comprehension. Financial Status: Both parents are gainfully employed. 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 Both parents are able to take off leave now that baby has been born. Infant Supplies: Parents state that they have obtained all necessary baby supplies for baby, including: car seat, safe sleep space, clothes, diapers, and wipes. Childcare/Caregiver(s): ARCELIA states that since TOSIN works from home he will be the primary caregiver to baby when ARCELIA returns to work. Parents report that if TOSIN ever has to report somewhere for work he will have both sets of grandparents as options for childcare. ? Transportation:??Both parents have their drives license and reliable means of transportation. No barriers to transportation at this time. Programs/Agencies Involved: ?ARCELIA is connected to mental health services through [facility] in [place]. ARCELIA meets with her therapist (Shahla Echols) every week. ARCELIA also states that she is on the waitlist for a psychiatrist through [facility]. She has been waiting for almost a year. - Sw provided parents with literature on Help Me Grow and encouraged parents to consider getting connected when patient is ready for discharge. ARCELIA stated that when baby is ready to go home she is interested in a referral. Sw to make referral when baby is discharged from [facility]. Children Services/Legal Issues:??? No history of involvement, no issues or concerns warranting a referral at this time. Behavioral Health Issues: ??Mental Health History:??TOSIN denies mental health diagnoses. ARCELIA states that she has been diagnosed with anxiety, depression, ADHD, and OCD. ARCELIA states that her OCD tendencies are picking and picking at her split ends on her hair. ARCELIA states that her counselor has told her she has made a lot of progress with treatment since being . ARCELIA reports that she had an ectopic last year, and at that time her mental health had taken a bad turn. She increased the time she was meeting with her counselor and feels like she is in a really good place right now. ARCELIA states that her counselor has discussed and educated her on signs and symptoms of baby blues and depression/ anxiety. ARCELIA identifies that TOSIN is a good support person for her and is able to recognize when she is struggling and is able to help her overcome what it is that she may be dealing with at that time. ? Substance Use History:?ARCELIA denies substance use prior to and during . ? Family History:???ARCELIA has mental health history on her side of the family. ARCELIA states that Bipolar, anxiety and depression all run in her family. ARCELIA states that she has an older sister that used to self medicate with substances/ pills, but she has been sober for 10 years. ?? Drug Screens: ??No urine screens observed in chart review. Family/Social Stressors: Parents deny at this time. ? Support Systems: Parents state that both sides of their families are supportive. MOB states that a lot of the teaching friends that she has are all supportive. Depression/Shaken Baby/Safe Sleeping:? Sw educated parents on signs and symptoms of baby blues and depression. Sw provided literature for parents to review. Parents expressed understanding. Sw educated parents on shaken baby prevention and ABCs of safe sleep. Parents expressed understanding. ASSESSMENT:? MOB and baby are admitted following labor and delivery. MOB with mental health history and is currently connected to counseling supports and psychotropic medications. MOB and FOB with lots of natural supports in place. Parents have obtained all necessary baby supplies. MOB and FOB were talkative and receptive to sw involvement and support. PLAN:? MOB and baby to be discharged when medically ready. Sw will remain involved throughout patient's SCN admission to provide ongoing support and linkage to beneficial community resources. ?No other services requested or indicated. Kenzie Hobbs, CONVEX GRINDER OPERATOR, COMPUTATIONAL GENETICIST
[2023-07-09 14:10] VITALS: BP 118/79; PULSE 77; RESP 16; TEMP 36.6
[2023-07-09 20:03] VITALS: BP 113/75; PULSE 80; RESP 16; TEMP 36.9; O2SAT 99
[2023-07-09] MEDS: traZODone 100 MG Tablet PO (21:43)
[2023-07-10] MEDS: Acetaminophen 500 MG Tablet 1000 MG PO ×2 (02:40→10:11)
[2023-07-10] MEDS: Ibuprofen 600 MG Tablet PO ×2 (02:41→10:10)
[2023-07-10 02:43] VITALS: BP 104/60; PULSE 69; RESP 15; TEMP 36.6
[2023-07-10] MEDS: busPIRone 15 MG TABLET PO (07:09)
[2023-07-10] MEDS: Pantoprazole Sodium 40 MG Tablet PO (07:10)
[2023-07-10] MEDS: LISDEXAMFETAMINE DIMESYLATE 50 MG CAPSULE PO (07:10)
[2023-07-10] MEDS: Sertraline 100 MG Tablet 150 MG PO (07:11)
[2023-07-10] MEDS: Prenatal Vits Tablet 1 TABLET PO (07:11)
--- NOTE | 2023-07-10 08:48 | PN.OBGYN_ITS ---
Subjective Subjective pain well controlled, average lochia, + Bm Objective Data Objective Data Vital Signs: Vital Signs Temp Pulse Resp BP Pulse Ox O2 Del Method 97.8 F 69 15 104/60 99 Room Air 07/10/23 02:43 07/10/23 02:43 07/10/23 02:43 07/10/23 02:43 07/09/23 20:03 07/09/23 20:03 Oxygen Delivery Method Room Air Weight: 64.229 kg Body Mass Index (BMI) 23.6 Intake & Output: Intake and Output for Last 24 Hours 07/08/23 07/09/23 07/10/23 23:59 23:59 23:59 Intake Total 2443.33 / 2443.33 Output Total 1450 / 1450 Balance 993.33 / 993.33 Lab / Micro Data 07/08/23 03:30 Physical Exam Const alert and no apparent distress Narrative: Fundus firm, below umbilicus. Assessment & Plan (1) (spontaneous vaginal delivery): PLAN: Plan day #2 status post vaginal delivery. Patient complaining of some engorgement. Discussed with her symptomatic measures. Discharged to hotel status. Okay for NSAIDs or Tylenol as needed pain. Routine PeriCare. Follow- up in the office in 1 to 2 weeks or as needed.
--- NOTE | 2023-07-10 08:49 | DS.PCM_ITS ---
Providers Date of Admission: 07/08/23 Date of Discharge: 07/10/23 Primary Care Physician: Dr. Quique Acosta MD Reason For Visit: LABOR/DEL VAG DEL Diagnosis Discharge Diagnosis (1) (spontaneous vaginal delivery): Status: Acute Code(s): O80 - Encounter for full-term uncomplicated delivery Plan day #2 status post vaginal delivery. Patient complaining of some engorgement. Discussed with her symptomatic measures. Discharged to hotel status. Okay for NSAIDs or Tylenol as needed pain. Routine PeriCare. Follow- up in the office in 1 to 2 weeks or as needed. Medications at Discharge Home Medications buspirone 15 mg tablet 15 mg PO BID anxiety 08/05/22 lisdexamfetamine 50 mg capsule 50 mg PO DAILY ADHD 08/05/22 pantoprazole 40 mg tablet,delayed release 40 mg PO DAILY reflux 08/05/22 sertraline 100 mg tablet 150 mg PO DAILY anxiety 08/05/22 trazodone 100 mg tablet 100 mg PO QHS insomia 08/05/22 doxylamine-pyridoxine (vit B6) PO nausea 07/08/23 magnesium PO headache 07/08/23 vits,calcium 91-iron 28 mg-folic 975 mcg-dha 200 mg oral pack ( + DHA) pkg PO 07/08/23 Hospital Course Summary of Care Provided Minutes Spent on Discharge: 17 Hospital Course: 27-year-old nulliparous patient admitted at 34+ gestational weeks with labor. Her labor progressed relatively quickly and she was had a spontaneous vaginal delivery the morning of 07/08/2023 of a vigorous female infant. The is in the special care nursery and doing well. By day #2 the patient was ready for discharge home with routine instructions and follow-up. She is to continue her home occasions. Follow-up in our office in 1 to 2 weeks or as needed. NSAIDs and Tylenol as needed pain. Weight / BMI Weight Weight: 64.229 kg Body Mass Index (BMI) 23.6 ABG / Lab / Microbiology Data 07/08/23 03:30 D/C Instructions Please Follow Up With: Wallace Contreras MD When: In our office in 1-2 and 6 weeks or as needed. Call or send a Addepar message with questions or to schedule Meaningful Use Info Meaningful Use Diagnoses (Choose all that apply): None applicable Discharge Plan Admission Admit Date/Time: 07/08/23 03:52 Primary Reason for Your Visit: labor and delivery Attending Provider: Wallace Contreras Primary Care Provider: Quique Acosta Discharge Orders/Prescriptions Prescriptions: No Action sertraline 100 mg Tablet 150 mg PO DAILY trazodone 100 mg Tablet 100 mg PO QHS pantoprazole 40 mg Tablet,Delayed Release (Dr/Ec) 40 mg PO DAILY buspirone 15 mg Tablet 15 mg PO BID lisdexamfetamine 50 mg Capsule 50 mg PO DAILY doxylamine-pyridoxine (vit B6) [Diclegis] PO + DHA 28 mg iron- 975 mcg-200 mg combo pack PO magnesium PO Referrals / Follow Up: Quique Acosta MD [Primary Care Provider] - Disposition Disposition (needs filled in before D/C Order can be placed): Home, Self Care
[2023-07-10 09:32] VITALS: BP 124/76; PULSE 101; RESP 16; TEMP 36.7; O2SAT 99
== END 2023-07-10 11:30 | disposition home or self-care (01) | DRG 807 ==
LOC: WPOUT 03:54 → WP 03:54
PROVIDERS: Advanced Practice Midwife; Admitting Provider Obstetrics & Gynecology; PCP Family Medicine; Referring Provider Obstetrics & Gynecology; Visit Provider Obstetrics & Gynecology
DX: O60.14X0 Preterm labor third trimester with preterm delivery third trimester, not applicable or unspecified (principal); Z37.0 Single live birth; O99.344 Other mental disorders complicating childbirth; F41.9 Anxiety disorder, unspecified; O70.1 Second degree perineal laceration during delivery; F90.9 Attention-deficit hyperactivity disorder, unspecified type; Z3A.34 34 weeks gestation of pregnancy; Z79.899 Other long term (current) drug therapy; Z87.891 Personal history of nicotine dependence
CPT/HCPCS: 59025; 59050; 84112; 85025; 86780; 86850; 86900; 86901; 87081; 87653; 99221; J7120; 90686; G0378; J0702